=== PATIENT | male | born 1950 | race Caucasian/White ===

== ENCOUNTER 2020-07-23 16:47 | Inpatient (IN) | payer MEDICARE, MEDICAID ==
[~2020-07-23] VITALS: Ht 170.2 cm; Wt 62.8 kg
[2020-07-23] MEDS: ALBUTEROL 6.7GM HFA INHALER ORI SCH (04:15)
[2020-07-23] MEDS ORDERED: METHYLPREDNISOLONE SOD SUCC 125 MG/2 ML VIAL IV STA (17:07)
[2020-07-23] MEDS ORDERED: ALBUTEROL (0.083%) 2.5MG/3ML NEB HHN STA (17:07)
[2020-07-23] MEDS ORDERED: MAGNESIUM 2 G PREMIX 50 ML IV STA (17:07)
[2020-07-23] MEDS ORDERED: LEVOFLOXACIN 750MG PREMIX 150 ML IV STA (17:07)
[2020-07-23] MEDS ORDERED: IPRATROPIUM BROMIDE (0.02%) 0.5MG/2.5ML NEB HHN STA (17:07)
[2020-07-23] MEDS ORDERED: VANCOMYCIN 1 G PREMIX 200 ML IV SCH (17:15)
[2020-07-23 17:57] LABS: BASOPHILS % 0.2 % (0.0-2.0); EOSINOPHILS % 0.2 % (0.0-5.0); HEMATOCRIT. 48.4 % (42.0-52.0); HEMOGLOBIN. 15.6 g/dL (14.0-18.0); LYMPHOCYTES % 28.4 % (20.0-50.0); MEAN CORPUSCULAR VOLUME 95.8 fL (80.0-94.0); MEAN PLATELET VOLUME 9.1 fl (7.4-10.4); MONOCYTES % 1.3 % (2.0-8.0); NEUTROPHILS % 69.9 % (40.0-76.0); PLATELET 188 x1000/uL (130-400); RED BLOOD CELL COUNT 5.05 mill/uL (4.7-6.1); RED CELL DISTRIBUTION WIDTH 15.1 % (11.6-14.6)
[2020-07-23 18:02] LABS: CHLORIDE 113 mEq/L (98-107)
[2020-07-23] MEDS ORDERED: LORAZEPAM 2MG/ML CPJ IV ONE (18:45)
[2020-07-23] MEDS ORDERED: METOPROLOL TARTRATE 5MG/5ML VIAL IV ONE (18:45)
[2020-07-23] MEDS ORDERED: METOPROLOL TARTRATE 25MG TABLET PO ONE (19:00)
[2020-07-23] MEDS ORDERED: SODIUM CHLORIDE 0.9% 250 ML IV ONE (19:00)
[2020-07-23] MEDS ORDERED: ONDANSETRON HCL 4MG/2ML INJ IV PRN (20:45)
[2020-07-23] MEDS ORDERED: CLONIDINE 0.1MG TABLET PO PRN (20:45)
[2020-07-23] MEDS ORDERED: NITROGLYCERIN 0.4MG TABLET SL SL PRN (20:45)
[2020-07-23] MEDS ORDERED: KETOROLAC 15MG/ML VIAL IV PRN (20:45)
[2020-07-23] MEDS ORDERED: DOCUSATE SODIUM 100MG CAPSULE PO PRN (20:45)
[2020-07-23] MEDS ORDERED: ACETAMINOPHEN 325MG TABLET PO PRN (20:45)
[2020-07-23] MEDS ORDERED: NOREPINEPHRINE 8 MG in DEXT 5% WATER 242 ML IV PRN ×2 (20:45→21:15)
[2020-07-23] MEDS ORDERED: AMIODARONE HCL 900 MG in DEXT 5% WATER 482 ML IV ONE ×2 (20:45→21:15)
[2020-07-23] MEDS ORDERED: ALBUTEROL 6.7GM HFA INHALER ORI PRN (20:45)
[2020-07-23] MEDS ORDERED: MAGNESIUM/ALUMINUM HYDROXIDE/SIMETHICONE 30ML UDC PO PRN (20:45)
[2020-07-23] MEDS ORDERED: ZOLPIDEM TARTRATE 5MG TABLET PO PRN (20:45)
[2020-07-23 21:19] LABS: T4 FREE 1.86 ng/dL (0.76-1.46)
[2020-07-23] MEDS ORDERED: AMIODARONE HCL 150 MG in DEXT 5% WATER 100 ML IV NR (21:30)
[2020-07-23 21:42] LABS: VITAMIN B12 SERUM 361 pg/mL (211-911)
[2020-07-23] MEDS ORDERED: AZITHROMYCIN 500 MG in DEXT 5% WATER 250 ML IV SCH (22:00)
[2020-07-23 22:15] LABS: FOLIC ACID (FOLATE) SERUM > 20.00 ng/mL (>5.38)
[2020-07-23] MEDS: GUAIFENESIN/DM 600MG/30MG ER TAB 12HR PO SCH (23:10)
[2020-07-23] MEDS: FAMOTIDINE 20MG TABLET PO SCH (23:10)
[2020-07-23] MEDS: ASCORBIC ACID 500 MG TABLET PO SCH (23:10)
[2020-07-23 23:28] LABS: CREATINE KINASE MB FRACTION 1.7 ng/mL (0.5-3.6)
[2020-07-24] VITALS (59 sets, daily range): BP systolic 92–127; BP diastolic 50–72
[2020-07-24] MEDS ORDERED: IOHEXOL-350 100 ML BOTTLE ONE (01:04)
[2020-07-24] MEDS: ALBUTEROL 6.7GM HFA INHALER ORI SCH (04:15)
[2020-07-24 05:21] LABS: CHLORIDE 110 mEq/L (98-107)
[2020-07-24 05:22] LABS: HEMATOCRIT. 43.7 % (42.0-52.0); HEMOGLOBIN. 14.5 g/dL (14.0-18.0); MEAN CORPUSCULAR HEMOGLOBIN 31.6 pg (28.0-32.0); MEAN CORPUSCULAR VOLUME 95.4 fL (80.0-94.0); MEAN PLATELET VOLUME 9.5 fl (7.4-10.4); PLATELET 137 x1000/uL (130-400); RED BLOOD CELL COUNT 4.58 mill/uL (4.7-6.1); RED CELL DISTRIBUTION WIDTH 14.4 % (11.6-14.6)
[2020-07-24 05:35] LABS: CREATINE KINASE 93 IU/L (39-308)
[2020-07-24 05:38] LABS: CREATINE KINASE MB FRACTION 1.7 ng/mL (0.5-3.6)
[2020-07-24] MEDS ORDERED: ASPIRIN 325MG EC TABLET PO SCH (09:00)
[2020-07-24 09:37] LABS: PLATELET ESTIMATE NORMAL
[2020-07-24] MEDS: DEXAMETHASONE 10 MG/ML VIAL IV SCH (10:45)
[2020-07-24] MEDS ORDERED: LIDOCAINE HCL 1% 20ML VIAL (Pyxis) INJ ONE (11:01)
[2020-07-24] MEDS ORDERED: DOPAMINE 400MG/250ML PREMIX 250 ML IV PRN (15:30)
[2020-07-24] MEDS: GUAIFENESIN/DM 600MG/30MG ER TAB 12HR PO SCH ×2 (16:58→20:01)
[2020-07-24] MEDS: ZINC SULFATE 220 MG ( 50 ) CAPSULE PO SCH (16:59)
[2020-07-24] MEDS: CHOLECALCIFEROL (D3) 1000 UNIT TABLET PO SCH (16:59)
[2020-07-24] MEDS: FAMOTIDINE 20MG TABLET PO SCH ×2 (16:59→20:01)
[2020-07-24] MEDS: ASCORBIC ACID 500 MG TABLET PO SCH ×2 (16:59→20:01)
[2020-07-24] MEDS: ACETAMINOPHEN 325MG TABLET PO PRN (20:01)
[2020-07-24] MEDS ORDERED: CEFTRIAXONE 1 G PREMIX 50 ML IV SCH (21:30)
[2020-07-24] MEDS ORDERED: CEFTRIAXONE 1,000 MG in DEXTROSE 5% WATER 50 ML IV SCH (22:00)
[2020-07-24] MEDS ORDERED: AZITHROMYCIN 500MG in DEXTROSE 5% WATER 250ML IV SCH (23:00)
[2020-07-25] VITALS (95 sets, daily range): BP systolic 87–144; BP diastolic 55–85
[2020-07-25] MEDS: GUAIFENESIN/DM 600MG/30MG ER TAB 12HR PO SCH ×2 (08:36→20:14)
[2020-07-25] MEDS: CHOLECALCIFEROL (D3) 1000 UNIT TABLET PO SCH (08:37)
[2020-07-25] MEDS: FAMOTIDINE 20MG TABLET PO SCH ×2 (08:37→20:14)
[2020-07-25] MEDS: DEXAMETHASONE 10 MG/ML VIAL IV SCH (08:37)
[2020-07-25] MEDS: ZINC SULFATE 220 MG ( 50 ) CAPSULE PO SCH (08:37)
[2020-07-25] MEDS: ASCORBIC ACID 500 MG TABLET PO SCH ×2 (08:37→20:14)
[2020-07-25 12:45] LABS: PROTHROMBIN TIME 10.5 sec (9.6-11.0)
[2020-07-25] MEDS: ENOXAPARIN 60MG/0.6ML SYR SUBCUT SCH ×2 (13:49→20:14)
[2020-07-25] MEDS: DILTIAZEM HCL 30MG TABLET PO SCH ×2 (13:49→20:14)
[2020-07-25] MEDS: CEFTRIAXONE 1,000 MG in DEXTROSE 5% WATER 50 ML IV SCH (20:13)
[2020-07-25] MEDS: AZITHROMYCIN 500MG in DEXTROSE 5% WATER 250ML IV SCH (20:14)
[2020-07-26] VITALS (52 sets, daily range): BP systolic 98–140; BP diastolic 52–96
[2020-07-26] MEDS: IPRATROPIUM BROMIDE (0.02%) 0.5MG/2.5ML NEB HHN PRN ×3 (00:12→16:13)
[2020-07-26] MEDS: ACETYLCYSTEINE 100MG/ML 10% VIAL 4ML INH SCH ×4 (00:12→16:13)
[2020-07-26 07:10] LABS: HEPATITIS B SURFACE ANTIGEN NEGATIVE
[2020-07-26] MEDS: DILTIAZEM HCL 30MG TABLET PO SCH ×3 (07:27→21:19)
[2020-07-26 07:40] LABS: HEPATITIS A AB IGM NEGATIVE (NEGATIVE)
[2020-07-26] MEDS: GUAIFENESIN/DM 600MG/30MG ER TAB 12HR PO SCH ×2 (08:45→20:36)
[2020-07-26] MEDS: CHOLECALCIFEROL (D3) 1000 UNIT TABLET PO SCH (09:36)
[2020-07-26] MEDS: ASCORBIC ACID 500 MG TABLET PO SCH ×2 (09:36→20:21)
[2020-07-26] MEDS: ASPIRIN 81MG EC TABLET PO SCH (09:36)
[2020-07-26] MEDS: ZINC SULFATE 220 MG ( 50 ) CAPSULE PO SCH (09:37)
[2020-07-26] MEDS: FAMOTIDINE 20MG TABLET PO SCH ×2 (09:37→20:21)
[2020-07-26] MEDS: GUAIFENESIN 200MG/10ML SUGAR FREE UDC PO PRN (09:39)
[2020-07-26] MEDS: ENOXAPARIN 60MG/0.6ML SYR SUBCUT SCH ×2 (09:39→20:20)
[2020-07-26] MEDS: CEFTRIAXONE 1,000 MG in DEXTROSE 5% WATER 50 ML IV SCH (20:19)
[2020-07-26] MEDS: AZITHROMYCIN 500MG in DEXTROSE 5% WATER 250ML IV SCH (20:34)
[2020-07-27] VITALS (52 sets, daily range): BP systolic 102–157; BP diastolic 61–96
[2020-07-27] MEDS: ACETYLCYSTEINE 100MG/ML 10% VIAL 4ML INH SCH ×3 (00:14→16:37)
[2020-07-27] MEDS: IPRATROPIUM BROMIDE (0.02%) 0.5MG/2.5ML NEB HHN PRN ×3 (00:23→16:38)
[2020-07-27 05:41] LABS: HEMATOCRIT. 39.7 % (42.0-52.0); HEMOGLOBIN. 13.3 g/dL (14.0-18.0); MEAN CORPUSCULAR HEMOGLOBIN 30.8 pg (28.0-32.0); MEAN CORPUSCULAR VOLUME 91.8 fL (80.0-94.0); MEAN PLATELET VOLUME 10.3 fl (7.4-10.4); PLATELET 104 x1000/uL (130-400); RED BLOOD CELL COUNT 4.33 mill/uL (4.7-6.1); RED CELL DISTRIBUTION WIDTH 14.6 % (11.6-14.6)
[2020-07-27 05:54] LABS: CHLORIDE 109 mEq/L (98-107)
[2020-07-27] MEDS: DILTIAZEM HCL 30MG TABLET PO SCH (06:16)
[2020-07-27] MEDS ORDERED: POTASSIUM CHLORIDE 20MEQ/PACKET PO SCH (07:45)
[2020-07-27] MEDS: FAMOTIDINE 20MG TABLET PO SCH ×2 (09:19→21:07)
[2020-07-27] MEDS: ASCORBIC ACID 500 MG TABLET PO SCH ×2 (09:19→21:07)
[2020-07-27] MEDS: ASPIRIN 81MG EC TABLET PO SCH (09:19)
[2020-07-27] MEDS: CHOLECALCIFEROL (D3) 1000 UNIT TABLET PO SCH (09:19)
[2020-07-27] MEDS: ZINC SULFATE 220 MG ( 50 ) CAPSULE PO SCH (09:19)
[2020-07-27] MEDS: ENOXAPARIN 60MG/0.6ML SYR SUBCUT SCH ×2 (09:21→21:08)
[2020-07-27] MEDS: GUAIFENESIN-DM 200MG-20MG/10ML UDC PO SCH ×2 (12:18→17:42)
[2020-07-27 12:29] LABS: PLATELET ESTIMATE SLIGHTLY DECREASED
[2020-07-27] MEDS ORDERED: FUROSEMIDE 20MG/2ML VIAL IVP NR (12:30)
[2020-07-27] MEDS ORDERED: POTASSIUM CHLORIDE 10MEQ TABLET SR PO NR (12:30)
[2020-07-27] MEDS: DILTIAZEM HCL 60MG TABLET PO SCH ×2 (14:03→21:08)
[2020-07-27] MEDS: CEFTRIAXONE 1,000 MG in DEXTROSE 5% WATER 50 ML IV SCH (20:33)
[2020-07-27] MEDS: AZITHROMYCIN 500MG in DEXTROSE 5% WATER 250ML IV SCH (21:09)
[2020-07-28] VITALS (12 sets, daily range): BP systolic 102–118; BP diastolic 62–82
[2020-07-28] MEDS: IPRATROPIUM BROMIDE (0.02%) 0.5MG/2.5ML NEB HHN PRN ×3 (00:14→14:25)
[2020-07-28] MEDS: GUAIFENESIN-DM 200MG-20MG/10ML UDC PO SCH ×4 (00:43→18:52)
[2020-07-28] MEDS: DILTIAZEM HCL 60MG TABLET PO SCH ×3 (06:17→21:52)
[2020-07-28] MEDS: ACETYLCYSTEINE 100MG/ML 10% VIAL 4ML INH SCH ×2 (07:43→14:25)
[2020-07-28] MEDS: FAMOTIDINE 20MG TABLET PO SCH ×2 (09:31→21:52)
[2020-07-28] MEDS: CHOLECALCIFEROL (D3) 1000 UNIT TABLET PO SCH (09:31)
[2020-07-28] MEDS: ASPIRIN 81MG EC TABLET PO SCH (09:31)
[2020-07-28] MEDS: ENOXAPARIN 60MG/0.6ML SYR SUBCUT SCH ×2 (09:31→21:53)
[2020-07-28] MEDS: ASCORBIC ACID 500 MG TABLET PO SCH ×2 (09:31→21:52)
[2020-07-28] MEDS: ZINC SULFATE 220 MG ( 50 ) CAPSULE PO SCH (09:31)
[2020-07-28] MEDS: GUAIFENESIN 200MG/10ML SUGAR FREE UDC PO PRN (18:48)
[2020-07-28] MEDS: CEFTRIAXONE 1,000 MG in DEXTROSE 5% WATER 50 ML IV SCH (20:27)
[2020-07-29] VITALS (13 sets, daily range): BP systolic 97–124; BP diastolic 55–74
[2020-07-29] MEDS: ACETYLCYSTEINE 100MG/ML 10% VIAL 4ML INH SCH ×3 (01:02→16:41)
[2020-07-29] MEDS: IPRATROPIUM BROMIDE (0.02%) 0.5MG/2.5ML NEB HHN PRN ×4 (01:03→16:49)
[2020-07-29] MEDS: GUAIFENESIN-DM 200MG-20MG/10ML UDC PO SCH ×5 (01:53→23:28)
[2020-07-29] MEDS: DILTIAZEM HCL 60MG TABLET PO SCH (06:25)
[2020-07-29 08:26] LABS: BG BASE EXCESS 3.8 mmol/L (-2.0-2.0); BG CARBOXYHEMOGLOBIN 0.2 % (0.5-1.5); BG DEOXYHEMOGLOBIN 4.5 % (0.0-5.0); BG FRACTION INSPIRED OXYGEN 60; BG METHEMOGLOBIN 0.3 % (0.0-1.5); BG OXYGEN SATURATION 95.5 % (92.0-98.5); BG PCO2 35.8 mmHg (35.0-45.0); BG PH 7.496 (7.350-7.450); BG PO2 77.6 mmHg (75.0-100.0); BG SAMPLE SITE RIGHT RADIAL; BG TOTAL HEMOGLOBIN 11.1 g/dL (12.0-18.0); BG VENT MODE MASK - SIMPLE
[2020-07-29] MEDS: ENOXAPARIN 60MG/0.6ML SYR SUBCUT SCH (08:33)
[2020-07-29] MEDS: FAMOTIDINE 20MG TABLET PO SCH (08:33)
[2020-07-29] MEDS: ASPIRIN 81MG EC TABLET PO SCH (08:33)
[2020-07-29] MEDS: ZINC SULFATE 220 MG ( 50 ) CAPSULE PO SCH (08:33)
[2020-07-29] MEDS: CHOLECALCIFEROL (D3) 1000 UNIT TABLET PO SCH (08:33)
[2020-07-29] MEDS: ASCORBIC ACID 500 MG TABLET PO SCH ×2 (08:33→21:13)
[2020-07-29 09:01] LABS: BASOPHILS % 0.1 % (0.0-2.0); EOSINOPHILS % 0.6 % (0.0-5.0); HEMATOCRIT. 34.3 % (42.0-52.0); HEMOGLOBIN. 11.7 g/dL (14.0-18.0); LYMPHOCYTES % 7.6 % (20.0-50.0); MEAN CORPUSCULAR HEMOGLOBIN 31.7 pg (28.0-32.0); MEAN CORPUSCULAR VOLUME 93.2 fL (80.0-94.0); MEAN PLATELET VOLUME 10.5 fl (7.4-10.4); MONOCYTES % 6.4 % (2.0-8.0); NEUTROPHILS % 85.3 % (40.0-76.0); PLATELET 101 x1000/uL (130-400); RED BLOOD CELL COUNT 3.68 mill/uL (4.7-6.1); RED CELL DISTRIBUTION WIDTH 15.1 % (11.6-14.6)
[2020-07-29 09:08] LABS: CHLORIDE 108 mEq/L (98-107)
[2020-07-29 12:29] LABS: TOTAL IRON BINDING CAPACITY 154 ug/dL (250-450)
[2020-07-29] MEDS: DILTIAZEM HCL 30MG TABLET PO SCH ×2 (14:00→23:00)
[2020-07-29] MEDS: CEFTRIAXONE 1,000 MG in DEXTROSE 5% WATER 50 ML IV SCH (19:48)
[2020-07-29] MEDS: METRONIDAZOLE 500 MG PREMIX 100 ML IV SCH (21:03)
[2020-07-29] MEDS: PANTOPRAZOLE SODIUM 40 MG/VIAL IV SCH (21:13)
[2020-07-30] VITALS (11 sets, daily range): BP systolic 106–133; BP diastolic 27–74
[2020-07-30] MEDS: ACETYLCYSTEINE 100MG/ML 10% VIAL 4ML INH SCH ×4 (00:30→15:51)
[2020-07-30] MEDS: IPRATROPIUM BROMIDE (0.02%) 0.5MG/2.5ML NEB HHN PRN ×2 (00:39→08:21)
[2020-07-30] MEDS: METRONIDAZOLE 500 MG PREMIX 100 ML IV SCH (05:29)
[2020-07-30] MEDS: DILTIAZEM HCL 30MG TABLET PO SCH ×3 (06:00→21:12)
[2020-07-30] MEDS: GUAIFENESIN-DM 200MG-20MG/10ML UDC PO SCH ×3 (06:00→18:08)
[2020-07-30 06:41] LABS: CHLORIDE 108 mEq/L (98-107)
[2020-07-30 07:02] LABS: BASOPHILS % 0.2 % (0.0-2.0); EOSINOPHILS % 1.7 % (0.0-5.0); HEMATOCRIT. 36.1 % (42.0-52.0); LYMPHOCYTES % 8.5 % (20.0-50.0); MEAN CORPUSCULAR HEMOGLOBIN 31.7 pg (28.0-32.0); MEAN CORPUSCULAR VOLUME 95.8 fL (80.0-94.0); MONOCYTES % 6.7 % (2.0-8.0); NEUTROPHILS % 82.9 % (40.0-76.0); PLATELET 107 x1000/uL (130-400); RED BLOOD CELL COUNT 3.77 mill/uL (4.7-6.1); RED CELL DISTRIBUTION WIDTH 14.9 % (11.6-14.6)
[2020-07-30] MEDS: CHOLECALCIFEROL (D3) 1000 UNIT TABLET PO SCH (08:53)
[2020-07-30] MEDS: ZINC SULFATE 220 MG ( 50 ) CAPSULE PO SCH (08:53)
[2020-07-30] MEDS: ASCORBIC ACID 500 MG TABLET PO SCH ×2 (08:53→20:32)
[2020-07-30] MEDS: PANTOPRAZOLE SODIUM 40 MG/VIAL IV SCH ×2 (09:00→20:32)
[2020-07-30 10:17] LABS: INR 0.9; PARTIAL THROMBOPLASTIN TIME 28.2 sec (23.4-31.0)
[2020-07-30 14:09] LABS: BG BASE EXCESS 4.4 mmol/L (-2.0-2.0); BG CARBOXYHEMOGLOBIN 0.3 % (0.5-1.5); BG DEOXYHEMOGLOBIN 6.3 % (0.0-5.0); BG HCO3 ACT 28.6 mmol/L (22.0-26.0); BG METHEMOGLOBIN 0.2 % (0.0-1.5); BG OXYGEN SATURATION 93.7 % (92.0-98.5); BG OXYHEMOGLOBIN 93.2 % (94.0-97.0); BG PCO2 41.1 mmHg (35.0-45.0); BG PO2 67.5 mmHg (75.0-100.0); BG SAMPLE SITE LEFT RADIAL; BG TOTAL HEMOGLOBIN 11.6 g/dL (12.0-18.0); BG VENT MODE MASK - SIMPLE
[2020-07-30] MEDS: IPRATROPIUM/ALBUTEROL 0.5-3(2.5)MG/3ML NEB HHN SCH ×2 (15:51→20:55)
[2020-07-30] MEDS: PIPERACILLIN/TAZOBACTAM 3.375 G in DEXT 5% WATER 100 ML IV SCH ×2 (18:08→23:29)
[2020-07-30] MEDS: GUAIFENESIN 200MG/10ML SUGAR FREE UDC PO PRN (23:29)
[2020-07-31] VITALS (12 sets, daily range): BP systolic 113–133; BP diastolic 63–78
[2020-07-31] MEDS: GUAIFENESIN-DM 200MG-20MG/10ML UDC PO SCH ×4 (00:06→18:11)
[2020-07-31] MEDS: IPRATROPIUM/ALBUTEROL 0.5-3(2.5)MG/3ML NEB HHN SCH ×4 (00:38→12:00)
[2020-07-31] MEDS: PIPERACILLIN/TAZOBACTAM 3.375 G in DEXT 5% WATER 100 ML IV SCH ×4 (04:22→21:10)
[2020-07-31] MEDS: DILTIAZEM HCL 30MG TABLET PO SCH (05:50)
[2020-07-31] MEDS: ASCORBIC ACID 500 MG TABLET PO SCH ×2 (09:18→21:10)
[2020-07-31] MEDS: ZINC SULFATE 220 MG ( 50 ) CAPSULE PO SCH (09:18)
[2020-07-31] MEDS: CHOLECALCIFEROL (D3) 1000 UNIT TABLET PO SCH (09:18)
[2020-07-31] MEDS: PANTOPRAZOLE SODIUM 40 MG/VIAL IV SCH ×2 (09:18→21:10)
[2020-07-31] MEDS: DILTIAZEM HCL 60MG TABLET PO SCH ×2 (14:37→21:10)
[2020-07-31] MEDS: ACETYLCYSTEINE 100MG/ML 10% VIAL 4ML INH SCH (17:49)
[2020-07-31] MEDS: IPRATROPIUM BROMIDE (0.02%) 0.5MG/2.5ML NEB HHN SCH ×2 (17:49→20:05)
[2020-08-01] VITALS (12 sets, daily range): BP systolic 102–132; BP diastolic 56–73
[2020-08-01] MEDS: GUAIFENESIN-DM 200MG-20MG/10ML UDC PO SCH ×5 (00:20→23:54)
[2020-08-01] MEDS: ACETYLCYSTEINE 100MG/ML 10% VIAL 4ML INH SCH ×3 (00:44→16:40)
[2020-08-01] MEDS: IPRATROPIUM BROMIDE (0.02%) 0.5MG/2.5ML NEB HHN SCH ×6 (00:44→21:17)
[2020-08-01] MEDS: PIPERACILLIN/TAZOBACTAM 3.375 G in DEXT 5% WATER 100 ML IV SCH (02:20)
[2020-08-01] MEDS: DILTIAZEM HCL 60MG TABLET PO SCH ×3 (05:14→22:00)
[2020-08-01 05:19] LABS: CHLORIDE 106 mEq/L (98-107)
[2020-08-01 05:23] LABS: HEMATOCRIT. 32.9 % (42.0-52.0); MEAN CORPUSCULAR VOLUME 92.8 fL (80.0-94.0); PLATELET 204 x1000/uL (130-400); RED BLOOD CELL COUNT 3.55 mill/uL (4.7-6.1); RED CELL DISTRIBUTION WIDTH 14.4 % (11.6-14.6)
[2020-08-01 09:15] LABS: BG BASE EXCESS 4.2 mmol/L (-2.0-2.0); BG CARBOXYHEMOGLOBIN 0.3 % (0.5-1.5); BG FRACTION INSPIRED OXYGEN 65; BG HCO3 ACT 27.7 mmol/L (22.0-26.0); BG METHEMOGLOBIN 0.2 % (0.0-1.5); BG OXYHEMOGLOBIN 91.5 % (94.0-97.0); BG PCO2 37.6 mmHg (35.0-45.0); BG PH 7.485 (7.350-7.450); BG PO2 59.9 mmHg (75.0-100.0); BG SAMPLE SITE RIGHT RADIAL; BG TOTAL HEMOGLOBIN 12.3 g/dL (12.0-18.0); BG VENT MODE NASAL CANNULA
[2020-08-01] MEDS ORDERED: POTASSIUM CHLORIDE INJ 40 MEQ in DEXT 5% WATER 250 ML IV NR (09:30)
[2020-08-01] MEDS: PANTOPRAZOLE SODIUM 40 MG/VIAL IV SCH ×2 (09:42→22:00)
[2020-08-01] MEDS: ASCORBIC ACID 500 MG TABLET PO SCH ×2 (09:42→22:00)
[2020-08-01] MEDS: ZINC SULFATE 220 MG ( 50 ) CAPSULE PO SCH (09:42)
[2020-08-01] MEDS: CHOLECALCIFEROL (D3) 1000 UNIT TABLET PO SCH (09:42)
[2020-08-01] MEDS: METRONIDAZOLE 500 MG PREMIX 100 ML IV SCH ×2 (09:55→17:27)
[2020-08-01] MEDS: CEFEPIME 2,000 MG in DEXT 5% WATER 100 ML IV SCH ×2 (12:00→22:02)
[2020-08-01 14:14] LABS: PLATELET ESTIMATE NORMAL
[2020-08-02] VITALS (13 sets, daily range): BP systolic 114–143; BP diastolic 51–85
[2020-08-02] MEDS: IPRATROPIUM BROMIDE (0.02%) 0.5MG/2.5ML NEB HHN SCH ×6 (00:14→21:03)
[2020-08-02] MEDS: ACETYLCYSTEINE 100MG/ML 10% VIAL 4ML INH SCH ×3 (00:14→16:34)
[2020-08-02] MEDS: METRONIDAZOLE 500 MG PREMIX 100 ML IV SCH ×2 (05:27→11:29)
[2020-08-02] MEDS: GUAIFENESIN-DM 200MG-20MG/10ML UDC PO SCH ×3 (05:36→17:30)
[2020-08-02] MEDS: DILTIAZEM HCL 60MG TABLET PO SCH ×3 (05:36→22:24)
[2020-08-02] MEDS: CEFEPIME 2,000 MG in DEXT 5% WATER 100 ML IV SCH (09:18)
[2020-08-02] MEDS: PANTOPRAZOLE SODIUM 40 MG/VIAL IV SCH ×2 (09:18→21:14)
[2020-08-02] MEDS: CHOLECALCIFEROL (D3) 1000 UNIT TABLET PO SCH (09:18)
[2020-08-02] MEDS: ASCORBIC ACID 500 MG TABLET PO SCH ×2 (09:18→21:00)
[2020-08-02] MEDS: ZINC SULFATE 220 MG ( 50 ) CAPSULE PO SCH (09:18)
[2020-08-02 10:15] LABS: HEMATOCRIT. 33.4 % (42.0-52.0); MEAN CORPUSCULAR VOLUME 94.2 fL (80.0-94.0); MEAN PLATELET VOLUME 8.6 fl (7.4-10.4); PLATELET 253 x1000/uL (130-400); RED BLOOD CELL COUNT 3.55 mill/uL (4.7-6.1); RED CELL DISTRIBUTION WIDTH 14.9 % (11.6-14.6)
[2020-08-02 10:26] LABS: CHLORIDE 109 mEq/L (98-107)
[2020-08-02 14:26] LABS: BG BASE EXCESS 0.7 mmol/L (-2.0-2.0); BG CARBOXYHEMOGLOBIN 0.3 % (0.5-1.5); BG DEOXYHEMOGLOBIN 7.8 % (0.0-5.0); BG FRACTION INSPIRED OXYGEN 100; BG METHEMOGLOBIN 0.2 % (0.0-1.5); BG OXYGEN SATURATION 92.2 % (92.0-98.5); BG OXYHEMOGLOBIN 91.7 % (94.0-97.0); BG PCO2 38.8 mmHg (35.0-45.0); BG PH 7.427 (7.350-7.450); BG PO2 62.1 mmHg (75.0-100.0); BG SAMPLE SITE LEFT RADIAL; BG TOTAL HEMOGLOBIN 12.5 g/dL (12.0-18.0); BG VENT MODE MASK - NRB
[2020-08-02] MEDS: MEROPENEM 1,000 MG in SODIUM CHLORIDE 0.9% 100 ML IV SCH ×2 (16:50→22:24)
[2020-08-02 19:58] LABS: PLATELET ESTIMATE NORMAL
[2020-08-03] VITALS (13 sets, daily range): BP systolic 96–123; BP diastolic 58–78
[2020-08-03] MEDS ORDERED: DILTIAZEM HCL 30MG TABLET PO SCH
[2020-08-03] MEDS: ACETYLCYSTEINE 100MG/ML 10% VIAL 4ML INH SCH ×4 (00:20→20:59)
[2020-08-03] MEDS: IPRATROPIUM BROMIDE (0.02%) 0.5MG/2.5ML NEB HHN SCH ×5 (00:20→16:45)
[2020-08-03] MEDS: GUAIFENESIN-DM 200MG-20MG/10ML UDC PO SCH ×4 (00:42→18:29)
[2020-08-03] MEDS: MEROPENEM 1,000 MG in SODIUM CHLORIDE 0.9% 100 ML IV SCH ×3 (05:17→21:15)
[2020-08-03] MEDS: DILTIAZEM HCL 90MG TABLET PO SCH ×3 (06:26→18:30)
[2020-08-03 06:56] LABS: HEMATOCRIT. 33.2 % (42.0-52.0); HEMOGLOBIN. 11.2 g/dL (14.0-18.0); MEAN CORPUSCULAR HEMOGLOBIN 31.3 pg (28.0-32.0); MEAN CORPUSCULAR VOLUME 92.5 fL (80.0-94.0); MEAN PLATELET VOLUME 8.8 fl (7.4-10.4); PLATELET 270 x1000/uL (130-400); RED BLOOD CELL COUNT 3.58 mill/uL (4.7-6.1); RED CELL DISTRIBUTION WIDTH 14.4 % (11.6-14.6)
[2020-08-03 07:26] LABS: CHLORIDE 109 mEq/L (98-107)
[2020-08-03 08:33] LABS: BG BASE EXCESS 1.8 mmol/L (-2.0-2.0); BG CARBOXYHEMOGLOBIN 0.3 % (0.5-1.5); BG DEOXYHEMOGLOBIN 6.4 % (0.0-5.0); BG FRACTION INSPIRED OXYGEN 100; BG HCO3 ACT 25.4 mmol/L (22.0-26.0); BG METHEMOGLOBIN 0.3 % (0.0-1.5); BG OXYGEN SATURATION 93.6 % (92.0-98.5); BG PCO2 36.6 mmHg (35.0-45.0); BG PO2 66.4 mmHg (75.0-100.0); BG SAMPLE SITE LEFT RADIAL; BG TOTAL HEMOGLOBIN 11.4 g/dL (12.0-18.0); BG VENT MODE MASK - NRB
[2020-08-03] MEDS: ZINC SULFATE 220 MG ( 50 ) CAPSULE PO SCH (09:24)
[2020-08-03] MEDS: CHOLECALCIFEROL (D3) 1000 UNIT TABLET PO SCH (09:24)
[2020-08-03] MEDS: PANTOPRAZOLE SODIUM 40 MG/VIAL IV SCH ×2 (09:24→21:15)
[2020-08-03] MEDS: ASCORBIC ACID 500 MG TABLET PO SCH ×2 (09:24→21:15)
[2020-08-03] MEDS ORDERED: POTASSIUM CHLORIDE INJ 40 MEQ in DEXT 5% WATER 250 ML IV SCH (15:00)
[2020-08-03 16:55] LABS: PLATELET ESTIMATE NORMAL
[2020-08-03] MEDS: IPRATROPIUM/ALBUTEROL 0.5-3(2.5)MG/3ML NEB HHN SCH (20:59)
[2020-08-04] VITALS (12 sets, daily range): BP systolic 97–139; BP diastolic 56–81
[2020-08-04] MEDS: GUAIFENESIN 200MG/10ML SUGAR FREE UDC PO PRN ×3 (00:10→00:12)
[2020-08-04] MEDS: DILTIAZEM HCL 90MG TABLET PO SCH ×4 (00:10→17:08)
[2020-08-04] MEDS: GUAIFENESIN-DM 200MG-20MG/10ML UDC PO SCH ×4 (00:20→17:12)
[2020-08-04] MEDS: IPRATROPIUM/ALBUTEROL 0.5-3(2.5)MG/3ML NEB HHN SCH ×6 (00:44→21:05)
[2020-08-04] MEDS: MEROPENEM 1,000 MG in SODIUM CHLORIDE 0.9% 100 ML IV SCH ×3 (05:37→21:32)
[2020-08-04 08:14] LABS: CHLORIDE 112 mEq/L (98-107)
[2020-08-04] MEDS: ACETYLCYSTEINE 100MG/ML 10% VIAL 4ML INH SCH ×2 (08:24→16:43)
[2020-08-04] MEDS: ZINC SULFATE 220 MG ( 50 ) CAPSULE PO SCH (08:43)
[2020-08-04] MEDS: CHOLECALCIFEROL (D3) 1000 UNIT TABLET PO SCH (08:43)
[2020-08-04] MEDS: PANTOPRAZOLE SODIUM 40 MG/VIAL IV SCH ×2 (08:43→21:29)
[2020-08-04] MEDS: ASCORBIC ACID 500 MG TABLET PO SCH ×2 (08:43→21:29)
[2020-08-04 09:32] LABS: BG BASE EXCESS 3.7 mmol/L (-2.0-2.0); BG CARBOXYHEMOGLOBIN 0.3 % (0.5-1.5); BG DEOXYHEMOGLOBIN 4.3 % (0.0-5.0); BG FRACTION INSPIRED OXYGEN 99.9; BG HCO3 ACT 27.9 mmol/L (22.0-26.0); BG METHEMOGLOBIN 0.1 % (0.0-1.5); BG OXYGEN SATURATION 95.7 % (92.0-98.5); BG OXYHEMOGLOBIN 95.3 % (94.0-97.0); BG PCO2 40.9 mmHg (35.0-45.0); BG PH 7.452 (7.350-7.450); BG PO2 77.7 mmHg (75.0-100.0); BG SAMPLE SITE LEFT RADIAL; BG TOTAL HEMOGLOBIN 11.2 g/dL (12.0-18.0); BG VENT MODE MASK - NRB
[2020-08-04] MEDS ORDERED: PROPOFOL 10MG/ML 100ML 100 ML IV PRN (10:45)
[2020-08-04] MEDS ORDERED: FENTANYL CITRATE/PF 2,500 MCG in SODIUM CHLORIDE 0.9% 200 ML IV PRN (10:45)
[2020-08-04] MEDS ORDERED: NOREPINEPHRINE 32 MG in DEXT 5% WATER 218 ML IV PRN (10:45)
[2020-08-04] MEDS ORDERED: VANCOMYCIN 1 G PREMIX 200 ML IV NR (13:30)
[2020-08-04] MEDS: COLISTIMETHATE SODIUM 150MG/VIAL INH SCH ×2 (16:52→21:05)
[2020-08-04] MEDS: MORPHINE SULFATE 2 MG/ML CPJ (NOT FOR IM USE) IV PRN ×2 (17:08→21:29)
[2020-08-04] MEDS: ACETAMINOPHEN 325MG TABLET PO PRN (17:09)
[2020-08-05] VITALS (12 sets, daily range): BP systolic 105–121; BP diastolic 61–76
[2020-08-05] MEDS: GUAIFENESIN-DM 200MG-20MG/10ML UDC PO SCH ×3 (00:19→13:58)
[2020-08-05] MEDS: VANCOMYCIN 1 G PREMIX 200 ML IV SCH ×2 (00:19→13:57)
[2020-08-05] MEDS: DILTIAZEM HCL 90MG TABLET PO SCH ×3 (00:19→13:58)
[2020-08-05] MEDS: IPRATROPIUM/ALBUTEROL 0.5-3(2.5)MG/3ML NEB HHN SCH ×4 (00:45→15:56)
[2020-08-05] MEDS: ACETYLCYSTEINE 100MG/ML 10% VIAL 4ML INH SCH ×2 (00:45→09:46)
[2020-08-05] MEDS: MORPHINE SULFATE 2 MG/ML CPJ (NOT FOR IM USE) IV PRN ×4 (01:41→15:55)
[2020-08-05] MEDS: MEROPENEM 1,000 MG in SODIUM CHLORIDE 0.9% 100 ML IV SCH ×2 (05:03→13:57)
[2020-08-05 06:58] LABS: CHLORIDE 109 mEq/L (98-107)
[2020-08-05 07:10] LABS: HEMATOCRIT. 34.1 % (42.0-52.0); HEMOGLOBIN. 11.3 g/dL (14.0-18.0); MEAN CORPUSCULAR HEMOGLOBIN 30.9 pg (28.0-32.0); MEAN CORPUSCULAR VOLUME 93.1 fL (80.0-94.0); MEAN PLATELET VOLUME 8.9 fl (7.4-10.4); PLATELET 271 x1000/uL (130-400); RED BLOOD CELL COUNT 3.66 mill/uL (4.7-6.1); RED CELL DISTRIBUTION WIDTH 15.3 % (11.6-14.6)
[2020-08-05] MEDS: CHOLECALCIFEROL (D3) 1000 UNIT TABLET PO SCH (10:31)
[2020-08-05] MEDS: PANTOPRAZOLE SODIUM 40 MG/VIAL IV SCH (10:31)
[2020-08-05] MEDS: ASCORBIC ACID 500 MG TABLET PO SCH (10:32)
[2020-08-05] MEDS: ZINC SULFATE 220 MG ( 50 ) CAPSULE PO SCH (10:32)
[2020-08-05 14:40] LABS: PLATELET ESTIMATE NORMAL
[2020-08-05] MEDS ORDERED: LORAZEPAM 2MG/ML CPJ IV PRN (16:15)
[2020-08-05] MEDS ORDERED: MORPHINE SULFATE 250 MG in DEXT 5% WATER 240 ML IV PRN (16:15)
[2020-08-05] MEDS ORDERED: MORPHINE SULFATE 250 MG in DEXT 5% WATER 225 ML IV PRN (16:50)
[2020-08-06 01:58] VITALS: BP 107/57
[2020-08-06 03:58] VITALS: BP 101/67
[2020-08-06 05:58] VITALS: BP 106/76
[2020-08-06 08:00] VITALS: BP 117/70
[2020-08-06 08:07] LABS: CHLORIDE 111 mEq/L (98-107)
[2020-08-06 09:58] VITALS: BP 112/70
[2020-08-06 11:58] VITALS: BP 103/68
== END 2020-08-06 15:50 | DRG 871 ==
LOC: ER 16:47 → MICUSO 20:05 → EDBEDREQSVC 21:56 → EDBEDREQTM 21:56 → ENRESERV 07-24 08:05 → CVICU 07-25 21:40 → 3WST 07-27 18:15
PROVIDERS: ADMIT Internal Medicine; ATTEND Internal Medicine
PROC: 05HY33Z Insertion of Infusion Device into Upper Vein, Percutaneous Approach (ICD-10-PCS; principal; 2020-07-24)
PROC: B54MZZA Ultrasonography of Right Upper Extremity Veins, Guidance (ICD-10-PCS; 2020-07-24)
DX: A41.9 Sepsis, unspecified organism (principal); J96.01 Acute respiratory failure with hypoxia; R65.21 Severe sepsis with septic shock; G92 Toxic encephalopathy; E43 Unspecified severe protein-calorie malnutrition; J69.0 Pneumonitis due to inhalation of food and vomit; I21.A1 Myocardial infarction type 2; I48.92 Unspecified atrial flutter; I48.11 Longstanding persistent atrial fibrillation; I69.354 Hemiplegia and hemiparesis following cerebral infarction affecting left non-dominant side; E78.5 Hyperlipidemia, unspecified; I11.0 Hypertensive heart disease with heart failure; I50.9 Heart failure, unspecified; E83.51 Hypocalcemia; F03.90 Unspecified dementia, unspecified severity, without behavioral disturbance, psychotic disturbance, mood disturbance, and anxiety; D64.9 Anemia, unspecified; E87.6 Hypokalemia; D69.6 Thrombocytopenia, unspecified; E78.00 Pure hypercholesterolemia, unspecified; Z51.5 Encounter for palliative care; Z66 Do not resuscitate; I45.81 Long QT syndrome; I48.0 Paroxysmal atrial fibrillation; Z20.822 Contact with and (suspected) exposure to COVID-19; Z78.1 Physical restraint status; Z90.49 Acquired absence of other specified parts of digestive tract; Z78.9 Other specified health status; Z79.01 Long term (current) use of anticoagulants; Z79.899 Other long term (current) drug therapy; Z68.21 Body mass index [BMI] 21.0-21.9, adult
CPT/HCPCS: 36415; 36600; 71045; 71275; 74018; 76705; 76937; 80048; 80053; 80061; 80202; 82140; 82375; 82550; 82553; 82607; 82728; 82746; 82805; 82962; 83036; 83540; 83550; 83605; 83615; 83735; 83880; 84145; 84439; 84443; 84478; 84484; 85025; 85379; 86705; 86709; 86803; 87340; 87426; 87804; 92610; 93005; 93306; 93970; 94640; 94667; 97162; 99291; A6261; C1725; C9113; J0282; J0456; J0692; J0696; J0770; J1100; J1650; J1940; J1956; J2185; J2270; J2274; J2543; J2930; J3370; J3475; J3480; J3490; J7040; J7050; J7060; J7608; Q9967; U0003; A4315